=== PATIENT | male | born 1980 | race Caucasian/White ===

== ENCOUNTER 2021-07-15 20:37 | Emergency (ER) | payer SELFPAY ==
[~2021-07-15] VITALS: Ht 167.7 cm; Wt 63.5 kg
[2021-07-15 20:40] VITALS: BP 170/121
[2021-07-15] MEDS ORDERED: LACTATED RINGERS 1,000 ML IV ONE (20:45)
[2021-07-15 20:50] LABS: BASOPHILS # (AUTO) 0.2 10^3/uL (0.0-0.1); BASOPHILS % (AUTO) 2 % (0-10); EOSINOPHILS # (AUTO) 0.1 10^3/uL (0.0-0.3); EOSINOPHILS % (AUTO) 1 % (0-10); HEMATOCRIT 39 % (40-54); HEMOGLOBIN 13.7 g/dL (13.3-17.7); LYMPHOCYTES # (AUTO) 2.4 10^3/uL (1.0-4.0); LYMPHOCYTES % (AUTO) 21 % (12-44); MEAN CORPUSCULAR HEMOGLOBIN 37 pg (25-34); MEAN CORPUSCULAR HGB CONC 35 g/dL (32-36); MEAN CORPUSCULAR VOLUME 105 fL (80-99); MEAN PLATELET VOLUME 9.4 fL (9.0-12.2); MONOCYTES # (AUTO) 1.5 10^3/uL (0.0-1.0); MONOCYTES % (AUTO) 13 % (0-12); NEUTROPHILS # (AUTO) 7.3 10^3/uL (1.8-7.8); NEUTROPHILS % (AUTO) 64 % (42-75); PLATELET COUNT 277 10^3/uL (130-400); WHITE BLOOD COUNT 11.5 10^3/uL (4.3-11.0)
--- NOTE | 2021-07-15 20:55 | ED Psychosocial ---
General Chief Complaint: Overdose Stated Complaint: OD Source: patient, EMS ([facility]rien[facility]) History of Present Illness Date Seen by Provider: Jul 15, 2021 Time Seen by Provider: 20:40 Initial Comments PT ARRIVES VIA EMS PT WAS UNRESPONSIVE WITH SHALLOW BREATHING WHEN POLICE ARRIVED AT SCENE POLICE GAVE 4 MG NARCAN INTRANASALLY AND PT IMMEDIATELY WOKE UP PT HAS REMAINED AWAKE AND ALERT SINCE THEN PT STATES HE HAS DRANK A PINT OF VODKA, AND THEN 3 HOURS AGO, TOOK 4 HYDROCODONE 10 MG TABLETS, AND THEN 1 1/2 HOURS AGO, HE TOOK ANOTHER 4 HYDROCODONE 10 MG TABLETS PT STATES HE WANTED TO GET HIGH--DENIES ANY SUICIDAL INTENT PT STATES HE DRINKS DAILY--AT LEAST A HALF PINT OR MORE OF VODKA STATES HE USED TO TAKE HYDROCODONE "A BUNCH ALL THE TIME" TO GET HIGH. PT ALSO STATES HE USED TO USE METH, DENIES ANY RECENT USE. DENIES ANY IV DRUG USE. PT HAS NO COMPLAINTS ON ARRIVAL. PT IS AWAKE, ALERT, SPEECH CLEAR, SITTING UP ON EMS CART. PCP: NONE Allergies and Home Medications Allergies Coded Allergies: No Known Drug Allergies (Unverified , 07/15/21) Patient Home Medication List Home Medication List Reviewed: No Review of Systems Constitutional: no symptoms reported Respiratory: see HPI Cardiovascular: no symptoms reported Gastrointestinal: no symptoms reported Genitourinary: no symptoms reported Musculoskeletal: no symptoms reported Skin: no symptoms reported Psychiatric/Neurological: See HPI Past [id number] Hx Patient Social History Tobacco Use?: Yes Tobacco type used: Cigarettes Smoking Status: Current Everyday Smoker Substance use?: Yes Substance type: Methamphetamine, Opiates/Opioids Alcohol Use?: Yes Alcohol type: Hard Liquor Alcohol Frequency: Daily Past Medical History Surgeries: Yes (WISDOM TEETH REMOVED) Tonsillectomy Respiratory: No Cardiac: No Neurological: No Genitourinary: No Gastrointestinal: No Musculoskeletal: No Endocrine: No HEENT: Yes (TONSILLECTOMY; WISDOM TEETH REMOVED. ) Cancer: No Psychosocial: Yes (SUBSTANCE ABUSE) Integumentary: No Blood Disorders: No Physical Exam Vital Signs - First Documented Capillary Refill : Height, Weight, BMI Height: '" Weight: lbs. oz. kg; BMI Method: General Appearance: WD/WN, no apparent distress, other (UNKEMPT) Respiratory: normal breath sounds, no respiratory distress Cardiovascular: tachycardia Neurologic/Psychiatric: air twister winder II-XII nml as tested, no motor/sensory deficits, alert, normal mood/affect, oriented x 3 Appearance/Memory: disheveled Behavior/Eye Contact: cooperative, good eye contact, normal speech Thoughts/Hallucinations: no apparent hallucination Skin: normal color, warm/dry Progress/Results/Core Measures Results/Orders Lab Results Laboratory Tests Test 07/15/21 20:40 Range/Units White Blood Count 11.5 H 4.3-11.0 10^3/uL Red Blood Count 3.70 L 4.30-5.52 10^6/uL Hemoglobin 13.7 13.3-17.7 g/dL Hematocrit 39 L 40-54 % Mean Corpuscular Volume 105 H 80-99 fL Mean Corpuscular Hemoglobin 37 H 25-34 pg Mean Corpuscular Hemoglobin Concent 35 32-36 g/dL Red Cell Distribution Width 12.4 10.0-14.5 % Platelet Count 277 130-400 10^3/uL Mean Platelet Volume 9.4 9.0-12.2 fL Immature Granulocyte % (Auto) 0 % Neutrophils (%) (Auto) 64 42-75 % Lymphocytes (%) (Auto) 21 12-44 % Monocytes (%) (Auto) 13 H 0-12 % Eosinophils (%) (Auto) 1 0-10 % Basophils (%) (Auto) 2 0-10 % Neutrophils # (Auto) 7.3 1.8-7.8 10^3/uL Lymphocytes # (Auto) 2.4 1.0-4.0 10^3/uL Monocytes # (Auto) 1.5 H 0.0-1.0 10^3/uL Eosinophils # (Auto) 0.1 0.0-0.3 10^3/uL Basophils # (Auto) 0.2 H 0.0-0.1 10^3/uL Immature Granulocyte # (Auto) 0.0 0.0-0.1 10^3/uL My Orders Orders - SRINIVASAN OSORIO DO Urinalysis (07/15/21 20:44) Thyroid Analyzer (07/15/21 20:44) Drug Screen Stat (Urine) (07/15/21 20:44) Cbc With Automated Diff (07/15/21 20:44) Comprehensive Metabolic Panel (07/15/21 20:44) Amylase (07/15/21 20:44) Alcohol (07/15/21 20:44) Acetaminophen (07/15/21 20:44) Salicylate (07/15/21 20:44) Ekg Tracing (07/15/21 20:44) Monitor-Rhythm Ecg Trace Only (07/15/21 20:44) Lipase (07/15/21 20:44) Magnesium (07/15/21 20:44) Ed Iv/Invasive Line Start (07/15/21 20:44) Lactated Ringers (Lr 1000 Ml Iv Solution (07/15/21 20:45) Vital Signs/I&O 07/15/21 07/15/21 20:40 20:40 Temp 36.9 Pulse 139 Resp 18 B/P (MAP) 170/121 (137) Pulse Ox 98 O2 Delivery Room Air Room Air Progress Progress Note : Progress Note 2054--PT WANTING TO LEAVE, SIGNING OUT AMA. SPEECH CLEAR AND GAIT STEADY. PT VOICES NO SUICIDAL IDEATIONS. Departure Impression Primary Impression: Left against medical advice Disposition: 07 AGAINST MEDICAL ADVICE Condition: Against Medical Advice Departure-Patient Inst. Referrals: UNKNOWN (PCP/Family) Primary Care Physician Patient Instructions: ALCOHOL AND SUBSTANCE ABUSE SRINIVASAN OSORIO DO Jul 15, 2021 20:55
[2021-07-15 20:58] LABS: ALBUMIN 4.4 GM/DL (3.2-4.5); CHLORIDE 99 MMOL/L (98-107); POTASSIUM 3.3 MMOL/L (3.6-5.0); SODIUM 138 MMOL/L (135-145)
[2021-07-15 21:00] LABS: AMYLASE 41 U/L (25-125); CALCIUM 9.3 MG/DL (8.5-10.1)
[2021-07-15 21:01] LABS: GLUCOSE 101 MG/DL (70-105); TOTAL PROTEIN 7.6 GM/DL (6.4-8.2)
[2021-07-15 21:02] LABS: CARBON DIOXIDE 19 MMOL/L (21-32)
[2021-07-15 21:03] LABS: BILIRUBIN,TOTAL 1.6 MG/DL (0.1-1.0)
[2021-07-15 21:05] LABS: ALKALINE PHOSPHATASE 65 U/L (40-136); CREATININE SERUM 0.86 MG/DL (0.60-1.30); GFR ESTIMATED 112
[2021-07-15 21:06] LABS: BUN/CREATININE RATIO 10
[2021-07-15 21:07] LABS: ACETAMINOPHEN < 10 UG/ML (10-30); SALICYLATE < 5.0 MG/DL (5.0-20.0)
[2021-07-15 21:08] LABS: ALANINE AMINOTRANSFERASE 110 U/L (0-55); MAGNESIUM 1.3 MG/DL (1.6-2.4)
[2021-07-15 21:09] LABS: LIPASE 15 U/L (8-78)
[2021-07-15 21:29] LABS: TSH (THYROID ANALYZER) 4.07 UIU/ML (0.35-4.94)
== END 2021-07-15 21:07 | disposition left against medical advice (07) ==
LOC: EDUNIT# 20:37 → ER 20:39
DX: R40.4 Transient alteration of awareness (principal); R00.0 Tachycardia, unspecified; F17.210 Nicotine dependence, cigarettes, uncomplicated
CPT/HCPCS: 80053; 82150; 83690; 83735; 84443; 85025; 93005; 93041; 99284; G0480 ×3; 36415; 80320; 80329